=== PATIENT | male | born 1980 | race Two or more races ===

== ENCOUNTER 2023-02-07 15:22 | Emergency (ER) | payer MEDICAID, OTHER ==
[~2023-02-07] VITALS: Ht 175.3 cm; Wt 63.6 kg
[2023-02-07 16:20] VITALS: BP 93/61; PULSE 84; RESP 20; O2SAT 96
== END 2023-02-07 17:59 | disposition left against medical advice (07) ==
LOC: ER 15:22
DX: Z93.1 Gastrostomy status (principal); Z53.21 Procedure and treatment not carried out due to patient leaving prior to being seen by health care provider